=== PATIENT | female | born 1965 | race Caucasian/White ===

== ENCOUNTER 2017-04-14 22:35 | Inpatient (IN) | payer OTHER ==
[~2017-04-14] VITALS: Ht 162.6 cm; Wt 101.0 kg
[~2017-04-14 22:35] MED LIST: ALPR0.254 PO; ARIP1TAB5 PO; ASPI81CH43 PO; ATOR20TA50 PO; BUPR100T14 PO; BUPR75TA9 PO; BUSP15TA60 PO; CARI-277 PO; CLOP75TA28 PO; FENT100D2 TD; HYDR25TA4 PO; LAM100T PO; LIS10T PO; PERCOT PO; PRIM50TA29 PO; SERT-160 PO
[2017-04-14] MEDS ORDERED: ALBUTEROL SULF 2.5 MG/0.5ML(0.5%) NEB SOLN NEB ONE (23:00)
[2017-04-14] MEDS ORDERED: IPRATROPIUM BROM 0.5 MG/2.5ML INH SOL NEB ONE (23:00)
[2017-04-14] MEDS ORDERED: methylPREDNISolone SOD SUCC 125 MG/2 ML VL ONE (23:24)
[2017-04-14] MEDS ORDERED: methylPREDNISolone SOD SUCC 125 MG/2 ML VL IV ONE (23:30)
[2017-04-14 23:33] LABS: Basophils # (auto) 0.2 uL; Basophils % (auto) 1.8 % (0.0-2.0); Eosinophils # (auto) 0 uL; Eosinophils % (auto) 0.2 % (0.0-7.0); Hematocrit 42.9 % (36.0-46.0); Hemoglobin 14.4 g/dL (12.2-16.2); Lymphocytes # (auto) 0.5 uL; Lymphocytes % (auto) 5.2 % (10.0-50.0); Mean Corpuscular Hemoglobin 29.8 pg (28.0-32.0); Mean Corpuscular Hgb Conc. 33.5 g/dL (32.0-36.0); Mean Corpuscular Volume 89.1 fL (80.0-100.0); Monocytes # (auto) 0.5 uL; Monocytes % (auto) 5.2 % (0.0-12.0); Neutrophils # (auto) 8.8 uL; Neutrophils % (auto) 87.6 % (37.0-80.0); Platelet Count (auto) 284 10^3/uL (140-450); Red Blood Cells 4.82 10^6/uL (4.0-5.20); Red Cell Distribution Width 14.3 % (11.8-14.3); White Blood Cell 10.1 10^3/uL (4.4-10.8)
[2017-04-14 23:42] LABS: Alanine Aminotransferase 29 U/L (13-56); Albumin 2.8 g/dL (3.4-5.0); Anion Gap 11 (5-15); Aspartate Aminotransferase 15 U/L (15-37); BUN/Creatinine Ratio 23.7; Blood Urea Nitrogen 22 mg/dL (7-18); Calcium 8.9 mg/dL (8.5-10.1); Carbon Dioxide 28 mmol/L (21-32); Chloride 97 mmol/L (98-107); GFR African American 81 mL/min; GFR Non-African American 67 mL/min; Glucose 136 mg/dL (74-106); Magnesium 1.6 mg/dL (1.6-2.6); Potassium 3.3 mmol/L (3.5-5.1); Sodium 136 mmol/L (136-145)
[2017-04-14 23:46] LABS: Alkaline Phosphatase 106 U/L (45-117); Total Protein 6.9 g/dL (6.4-8.2)
[2017-04-15] MEDS ORDERED: ALBUTEROL SULF 2.5 MG/0.5ML(0.5%) NEB SOLN NEB ONE (01:15)
[2017-04-15] MEDS ORDERED: IPRATROPIUM BROM 0.5 MG/2.5ML INH SOL NEB ONE (01:15)
[2017-04-15] MEDS ORDERED: cefTRIAXone 1GM/10ml IVPUSH 10 ML IV ONE (02:00)
[2017-04-15] MEDS ORDERED: VANCOMYCIN 1GM/250ML 250 ML IV ONE (02:00)
[2017-04-15 02:19] LABS: Urine Bacteria FEW /hpf (None Seen); Urine Blood Negative /uL (Negative); Urine Hyaline Cast FEW /lpf (0 - 2); Urine Mucus FEW (None Seen); Urine Specific Gravity 1.034 (1.001-1.035); Urine WBC 11 /hpf (0 - 5)
[2017-04-15 02:20] LABS: Alcohol, Urine < 3.0 mg/dL (0-5); Amphetamine Screen, Urine NEGATIVE (NEGATIVE); Barbiturate Scree,Urine POSITIVE (NEGATIVE); Benzodiazephine Screen, Urine POSITIVE (NEGATIVE); Cannabinoid Screen, Urine NEGATIVE (NEGATIVE); Cocaine Screen, Urine NEGATIVE (NEGATIVE); Opiate Scree,Urine NEGATIVE (NEGATIVE); Phencyclidine Screen, Urine NEGATIVE (NEGATIVE)
[2017-04-15] MEDS ORDERED: FLUT250M2 INH (03:13)
[2017-04-15] MEDS ORDERED: ATO40T PO (03:13)
[2017-04-15] MEDS ORDERED: POTASSIUM CHL 20 Meq TABLET PO ONE ×2 (03:15→14:45)
[2017-04-15] MEDS ORDERED: ONDANSETRON HCL 4 MG/2 ML VIAL IV PRN (03:15)
[2017-04-15] MEDS ORDERED: HYDROcodone-ACET 5/325MG TAB PO PRN (03:15)
[2017-04-15 04:18] LABS: Basophils # (auto) 0 uL; Basophils % (auto) 0.1 % (0.0-2.0); Eosinophils # (auto) 0 uL; Eosinophils % (auto) 0.2 % (0.0-7.0); Hemoglobin 13.8 g/dL (12.2-16.2); Lymphocytes # (auto) 0.7 uL; Lymphocytes % (auto) 6.1 % (10.0-50.0); Mean Corpuscular Hemoglobin 29.1 pg (28.0-32.0); Mean Corpuscular Hgb Conc. 32.8 g/dL (32.0-36.0); Mean Corpuscular Volume 88.7 fL (80.0-100.0); Monocytes # (auto) 0.5 uL; Monocytes % (auto) 4.8 % (0.0-12.0); Neutrophils # (auto) 9.8 uL; Neutrophils % (auto) 88.8 % (37.0-80.0); Platelet Count (auto) 272 10^3/uL (140-450); Red Blood Cells 4.74 10^6/uL (4.0-5.20); Red Cell Distribution Width 14.3 % (11.8-14.3)
[2017-04-15 04:20] VITALS: BP 106/58
[2017-04-15 04:31] LABS: BUN/Creatinine Ratio 23.4; Calcium 8.8 mg/dL (8.5-10.1); Potassium 3.4 mmol/L (3.5-5.1)
[2017-04-15 05:10] LABS: Lactic Acid w/Reflex 2.8 mmol/L (0.4-2.0)
[2017-04-15] MEDS: ALBUTEROL SULF 2.5 MG/0.5ML(0.5%) NEB SOLN NEB SCH ×3 (05:30→18:00)
[2017-04-15] MEDS ORDERED: DOXYCYCLINE HYC 100MG/250ML 250 ML IV SCH (05:45)
[2017-04-15] MEDS ORDERED: IPRATROPIUM BROM 0.5 MG/2.5ML INH SOL NEB SCH (06:00)
[2017-04-15] MEDS ORDERED: cefTRIAXone 1GM/10ml IVPUSH 10 ML IV SCH (09:00)
[2017-04-15 09:27] VITALS: BP 121/83
[2017-04-15] MEDS: SERTRALINE HCL 50 MG TAB PO SCH (10:18)
[2017-04-15] MEDS: ASPirin-EC 81 mg tab PO SCH (10:18)
[2017-04-15] MEDS: busPIRone HCL 10 MG TAB PO SCH ×2 (10:18→23:10)
[2017-04-15] MEDS: IPRATROPIUM BROM 0.5 MG/2.5ML INH SOL NEB SCH ×2 (13:13→18:00)
[2017-04-15] MEDS ORDERED: LEVOFLOXACIN 750MG 150 ML IV ONE (14:45)
[2017-04-15] MEDS ORDERED: ALBUTEROL SULF 2.5 MG/0.5ML(0.5%) NEB SOLN NEB PRN (14:45)
[2017-04-15] MEDS ORDERED: OSELTAMIVIR 75 MG CAP PO ONE (14:45)
[2017-04-15] MEDS ORDERED: CLINDAMYCIN 600MG IV 50 ML IV ONE (14:45)
[2017-04-15] MEDS ORDERED: methylPREDNISolone SOD SUCC 125 MG/2 ML VL IV ONE (16:15)
[2017-04-15 16:58] VITALS: BP 113/62
[2017-04-15] MEDS: methylPREDNISolone SOD SUCC 40 MG/ML VL IV SCH ×2 (18:53→23:11)
[2017-04-15 22:02] VITALS: BP 103/66
[2017-04-15] MEDS: ATORVASTATIN 20 MG TAB PO SCH (23:05)
[2017-04-15] MEDS: buPROPion HCL 75 MG TAB PO SCH (23:07)
[2017-04-15] MEDS: OSELTAMIVIR 75 MG CAP PO SCH (23:07)
[2017-04-15] MEDS: PRIMIDONE 50 MG TAB PO SCH (23:11)
[2017-04-15] MEDS: CARISOPRODOL 350 MG TAB PO SCH (23:11)
[2017-04-15] MEDS: fentaNYL 100MCG/HR 100 MCG/HR PAT TD SCH (23:12)
[2017-04-15] MEDS: CLINDAMYCIN 600MG IV 50 ML IV SCH (23:14)
[2017-04-16] VITALS (7 sets, daily range): BP systolic 95–117; BP diastolic 53–68
[2017-04-16] MEDS: IPRATROPIUM BROM 0.5 MG/2.5ML INH SOL NEB SCH ×4 (00:45→19:54)
[2017-04-16] MEDS: ALBUTEROL SULF 2.5 MG/0.5ML(0.5%) NEB SOLN NEB SCH ×4 (00:45→19:55)
[2017-04-16] MEDS: BUDESONIDE (INHALATION) 0.5 MG/2 ML NEB NEB SCH ×3 (00:45→19:55)
[2017-04-16 05:44] LABS: Basophils # (auto) 0 uL; Basophils % (auto) 0.1 % (0.0-2.0); Eosinophils # (auto) 0.1 uL; Eosinophils % (auto) 0.5 % (0.0-7.0); Hematocrit 40.9 % (36.0-46.0); Hemoglobin 13.3 g/dL (12.2-16.2); Lymphocytes # (auto) 0.9 uL; Lymphocytes % (auto) 6.9 % (10.0-50.0); Mean Corpuscular Hgb Conc. 32.5 g/dL (32.0-36.0); Mean Corpuscular Volume 89.1 fL (80.0-100.0); Monocytes # (auto) 0.4 uL; Monocytes % (auto) 3.3 % (0.0-12.0); Neutrophils # (auto) 11.6 uL; Neutrophils % (auto) 89.2 % (37.0-80.0); Nucleated Red Blood Cells % 0.1 %; Platelet Count (auto) 318 10^3/uL (140-450); Red Blood Cells 4.59 10^6/uL (4.0-5.20); Red Cell Distribution Width 14.6 % (11.8-14.3)
[2017-04-16] MEDS: CARISOPRODOL 350 MG TAB PO SCH ×4 (06:00→23:37)
[2017-04-16] MEDS: CLINDAMYCIN 600MG IV 50 ML IV SCH ×3 (06:00→21:31)
[2017-04-16] MEDS: methylPREDNISolone SOD SUCC 40 MG/ML VL IV SCH ×3 (06:00→17:46)
[2017-04-16] MEDS: CLOPIDOGREL BISULFATE 75 MG TAB PO SCH ×2 (10:00→10:37)
[2017-04-16] MEDS: LEVOFLOXACIN 750MG 150 ML IV SCH (10:33)
[2017-04-16] MEDS: busPIRone HCL 10 MG TAB PO SCH ×2 (10:34→23:37)
[2017-04-16] MEDS: ASPirin-EC 81 mg tab PO SCH (10:34)
[2017-04-16] MEDS: HCTZ 25 MG TAB PO SCH (10:37)
[2017-04-16] MEDS: OSELTAMIVIR 75 MG CAP PO SCH (10:37)
[2017-04-16] MEDS: buPROPion HCL 75 MG TAB PO SCH ×2 (10:38→23:37)
[2017-04-16] MEDS: SERTRALINE HCL 50 MG TAB PO SCH (10:41)
[2017-04-16] MEDS: LISINOPRIL 10 MG TAB PO SCH (10:43)
[2017-04-16] MEDS: PRIMIDONE 50 MG TAB PO SCH ×2 (10:57→23:37)
[2017-04-16] MEDS: OXYCODONE W/ ACETAMINOPHEN 5/325MG TABLET PO PRN ×2 (11:00→17:47)
[2017-04-16] MEDS ORDERED: ALBUTEROL SULF 2.5 MG/0.5ML(0.5%) NEB SOLN NEB PRN (16:30)
[2017-04-16] MEDS ORDERED: ENOXAPARIN SOD 100 MG/1 ML SYRINGE SC ONE (17:00)
[2017-04-16] MEDS ORDERED: IOHEXOL 350 MG/ML 100ML IJ ONE (21:31)
[2017-04-16] MEDS: ATORVASTATIN 20 MG TAB PO SCH (23:37)
[2017-04-17] VITALS (8 sets, daily range): BP systolic 105–127; BP diastolic 61–81
[2017-04-17] MEDS: methylPREDNISolone SOD SUCC 40 MG/ML VL IV SCH ×4 (00:09→18:01)
[2017-04-17] MEDS: ALBUTEROL SULF 2.5 MG/0.5ML(0.5%) NEB SOLN NEB SCH ×4 (00:10→20:04)
[2017-04-17] MEDS: IPRATROPIUM BROM 0.5 MG/2.5ML INH SOL NEB SCH ×4 (00:10→20:04)
[2017-04-17] MEDS: CLINDAMYCIN 600MG IV 50 ML IV SCH ×3 (05:58→22:54)
[2017-04-17] MEDS: CARISOPRODOL 350 MG TAB PO SCH ×4 (05:58→22:52)
[2017-04-17] MEDS: BUDESONIDE (INHALATION) 0.5 MG/2 ML NEB NEB SCH ×2 (06:10→20:04)
[2017-04-17] MEDS: ENOXAPARIN SOD 40 MG/0.4 ML SYRINGE SC SCH (09:56)
[2017-04-17] MEDS: LEVOFLOXACIN 750MG 150 ML IV SCH (09:57)
[2017-04-17] MEDS: buPROPion HCL 75 MG TAB PO SCH ×2 (09:58→22:53)
[2017-04-17] MEDS: HCTZ 25 MG TAB PO SCH (09:59)
[2017-04-17] MEDS: ASPirin-EC 81 mg tab PO SCH (09:59)
[2017-04-17] MEDS: SERTRALINE HCL 50 MG TAB PO SCH (09:59)
[2017-04-17] MEDS: LISINOPRIL 10 MG TAB PO SCH (10:00)
[2017-04-17] MEDS: CLOPIDOGREL BISULFATE 75 MG TAB PO SCH (10:00)
[2017-04-17] MEDS: busPIRone HCL 10 MG TAB PO SCH ×2 (10:54→22:52)
[2017-04-17] MEDS: PRIMIDONE 50 MG TAB PO SCH ×2 (10:54→22:53)
[2017-04-17] MEDS: OXYCODONE W/ ACETAMINOPHEN 5/325MG TABLET PO PRN ×2 (10:58→18:01)
[2017-04-17] MEDS: ATORVASTATIN 20 MG TAB PO SCH (22:53)
[2017-04-18] VITALS (7 sets, daily range): BP systolic 98–153; BP diastolic 61–86
[2017-04-18] MEDS: methylPREDNISolone SOD SUCC 40 MG/ML VL IV SCH ×4 (00:23→17:52)
[2017-04-18] MEDS: IPRATROPIUM BROM 0.5 MG/2.5ML INH SOL NEB SCH ×4 (00:28→19:46)
[2017-04-18] MEDS: ALBUTEROL SULF 2.5 MG/0.5ML(0.5%) NEB SOLN NEB SCH ×4 (00:28→19:46)
[2017-04-18] MEDS: ZOLPIDEM TARTRATE 5 MG TAB PO PRN ×2 (02:56→21:59)
[2017-04-18] MEDS: ACETAMINOPHEN 500 MG TAB PO PRN ×2 (03:42→16:26)
[2017-04-18] MEDS: CLINDAMYCIN 600MG IV 50 ML IV SCH ×3 (06:33→21:58)
[2017-04-18] MEDS: CARISOPRODOL 350 MG TAB PO SCH ×4 (06:33→21:59)
[2017-04-18] MEDS: BUDESONIDE (INHALATION) 0.5 MG/2 ML NEB NEB SCH ×2 (07:01→19:46)
[2017-04-18] MEDS: CLOPIDOGREL BISULFATE 75 MG TAB PO SCH ×2 (10:00→10:45)
[2017-04-18] MEDS: ASPirin-EC 81 mg tab PO SCH (10:44)
[2017-04-18] MEDS: LEVOFLOXACIN 750MG 150 ML IV SCH (10:44)
[2017-04-18] MEDS: busPIRone HCL 10 MG TAB PO SCH ×2 (10:44→21:59)
[2017-04-18] MEDS: PRIMIDONE 50 MG TAB PO SCH ×2 (10:45→21:59)
[2017-04-18] MEDS: HCTZ 25 MG TAB PO SCH (10:45)
[2017-04-18] MEDS: buPROPion HCL 75 MG TAB PO SCH ×2 (10:45→21:59)
[2017-04-18] MEDS: ENOXAPARIN SOD 40 MG/0.4 ML SYRINGE SC SCH (10:46)
[2017-04-18] MEDS: SERTRALINE HCL 50 MG TAB PO SCH (10:46)
[2017-04-18] MEDS: LISINOPRIL 10 MG TAB PO SCH (10:46)
[2017-04-18] MEDS: OXYCODONE W/ ACETAMINOPHEN 5/325MG TABLET PO PRN ×2 (11:00→17:53)
[2017-04-18] MEDS: fentaNYL 100MCG/HR 100 MCG/HR PAT TD SCH (20:38)
[2017-04-18] MEDS: ATORVASTATIN 20 MG TAB PO SCH (21:59)
[2017-04-19] MEDS: methylPREDNISolone SOD SUCC 40 MG/ML VL IV SCH ×4 (00:06→18:10)
[2017-04-19] MEDS: ALBUTEROL SULF 2.5 MG/0.5ML(0.5%) NEB SOLN NEB SCH ×4 (00:16→19:59)
[2017-04-19] MEDS: IPRATROPIUM BROM 0.5 MG/2.5ML INH SOL NEB SCH ×4 (00:16→19:59)
[2017-04-19] MEDS: OXYCODONE W/ ACETAMINOPHEN 5/325MG TABLET PO PRN ×4 (00:44→20:05)
[2017-04-19 05:13] VITALS: BP 151/80
[2017-04-19] MEDS: CARISOPRODOL 350 MG TAB PO SCH ×4 (06:06→21:48)
[2017-04-19] MEDS: CLINDAMYCIN 600MG IV 50 ML IV SCH (06:06)
[2017-04-19 07:14] LABS: Basophils # (auto) 0.1 uL; Basophils % (auto) 0.4 % (0.0-2.0); Eosinophils # (auto) 0.4 uL; Eosinophils % (auto) 2.6 % (0.0-7.0); Hematocrit 41.7 % (36.0-46.0); Hemoglobin 13.7 g/dL (12.2-16.2); Lymphocytes # (auto) 1.7 uL; Lymphocytes % (auto) 10.6 % (10.0-50.0); Mean Corpuscular Hgb Conc. 32.9 g/dL (32.0-36.0); Mean Corpuscular Volume 87.9 fL (80.0-100.0); Monocytes # (auto) 0.1 uL; Monocytes % (auto) 0.5 % (0.0-12.0); Neutrophils % (auto) 85.9 % (37.0-80.0); Platelet Count (auto) 340 10^3/uL (140-450); Red Blood Cells 4.74 10^6/uL (4.0-5.20); Red Cell Distribution Width 14.6 % (11.8-14.3); White Blood Cell 16.3 10^3/uL (4.4-10.8)
[2017-04-19] MEDS: BUDESONIDE (INHALATION) 0.5 MG/2 ML NEB NEB SCH ×2 (07:15→19:59)
[2017-04-19 07:26] LABS: Albumin 2.3 g/dL (3.4-5.0); BUN/Creatinine Ratio 34.4; Calcium 9.2 mg/dL (8.5-10.1); Potassium 4.2 mmol/L (3.5-5.1)
[2017-04-19 07:28] LABS: Bilirubin, Total 0.3 mg/dL (0.2-1.0); Total Protein 6.8 g/dL (6.4-8.2)
[2017-04-19 09:00] VITALS: BP 162/93
[2017-04-19] MEDS: buPROPion HCL 75 MG TAB PO SCH ×2 (09:16→21:48)
[2017-04-19] MEDS: LEVOFLOXACIN 750MG 150 ML IV SCH (09:16)
[2017-04-19] MEDS: PRIMIDONE 50 MG TAB PO SCH ×2 (09:16→21:48)
[2017-04-19] MEDS: busPIRone HCL 10 MG TAB PO SCH ×2 (09:17→21:47)
[2017-04-19] MEDS: ASPirin-EC 81 mg tab PO SCH (09:18)
[2017-04-19] MEDS: CLOPIDOGREL BISULFATE 75 MG TAB PO SCH (10:00)
[2017-04-19] MEDS: HCTZ 25 MG TAB PO SCH (10:57)
[2017-04-19] MEDS: LISINOPRIL 10 MG TAB PO SCH (10:58)
[2017-04-19] MEDS: ENOXAPARIN SOD 40 MG/0.4 ML SYRINGE SC SCH (10:59)
[2017-04-19] MEDS: SERTRALINE HCL 50 MG TAB PO SCH (10:59)
[2017-04-19 13:00] VITALS: BP 146/74
[2017-04-19 16:54] VITALS: BP 162/89
[2017-04-19] MEDS ORDERED: DEXTROSE (50%) 50ML SYRG IV PRN (17:00)
[2017-04-19] MEDS: InsuLIN REG 1unit/0.01ml Soln (100units/ml) SC SCH ×2 (17:00→21:49)
[2017-04-19] MEDS: ACCU-CHEK COMFORT CURVE STRIP VI SCH ×2 (18:10→21:50)
[2017-04-19] MEDS: Boost Glucose Control 8 Ounces PO SCH (18:11)
[2017-04-19 20:00] VITALS: BP 155/93
[2017-04-19] MEDS: ATORVASTATIN 20 MG TAB PO SCH (21:47)
[2017-04-19] MEDS: ZOLPIDEM TARTRATE 5 MG TAB PO PRN (21:50)
[2017-04-19 22:00] VITALS: BP 155/93
[2017-04-20] MEDS: ALBUTEROL SULF 2.5 MG/0.5ML(0.5%) NEB SOLN NEB SCH ×4 (00:21→20:01)
[2017-04-20] MEDS: IPRATROPIUM BROM 0.5 MG/2.5ML INH SOL NEB SCH ×4 (00:21→20:01)
[2017-04-20] MEDS: methylPREDNISolone SOD SUCC 40 MG/ML VL IV SCH ×4 (00:36→20:52)
[2017-04-20 05:00] VITALS: BP 152/84
[2017-04-20] MEDS: CARISOPRODOL 350 MG TAB PO SCH ×4 (05:41→20:53)
[2017-04-20] MEDS: OXYCODONE W/ ACETAMINOPHEN 5/325MG TABLET PO PRN ×3 (05:42→20:53)
[2017-04-20 05:58] LABS: Hematocrit 47.4 % (36.0-46.0); Hemoglobin 15.4 g/dL (12.2-16.2); Mean Corpuscular Hemoglobin 28.6 pg (28.0-32.0); Mean Corpuscular Hgb Conc. 32.5 g/dL (32.0-36.0); Mean Corpuscular Volume 87.7 fL (80.0-100.0); Platelet Count (auto) 367 10^3/uL (140-450); Red Blood Cells 5.41 10^6/uL (4.0-5.20); Red Cell Distribution Width 14.6 % (11.8-14.3); White Blood Cell 19.4 10^3/uL (4.4-10.8)
[2017-04-20 06:02] LABS: Basophils % (manual) 0 (0.0-2.0); Blast Cells 0; Eosinophils % (manual) 0 (0-7); Promyelocytes % 0; Reactive Lymphocytes 0
[2017-04-20 06:06] LABS: Albumin 2.6 g/dL (3.4-5.0); Calcium 9.2 mg/dL (8.5-10.1); Potassium 4.6 mmol/L (3.5-5.1)
[2017-04-20 06:16] LABS: Bilirubin, Total 0.4 mg/dL (0.2-1.0); Total Protein 7.3 g/dL (6.4-8.2)
[2017-04-20] MEDS: BUDESONIDE (INHALATION) 0.5 MG/2 ML NEB NEB SCH ×2 (06:40→20:01)
[2017-04-20 06:46] LABS: Band Neutrophils % (manual) 3; Lymphocytes % (manual) 19 (10.0-50.0); Metamyelocytes % 4; Monocytes % (manual) 5 (0-12); Myelocytes % 1
[2017-04-20] MEDS: InsuLIN REG 1unit/0.01ml Soln (100units/ml) SC SCH ×4 (06:47→21:09)
[2017-04-20] MEDS: ACCU-CHEK COMFORT CURVE STRIP VI SCH ×4 (06:47→20:53)
[2017-04-20] MEDS: Boost Glucose Control 8 Ounces PO SCH ×3 (08:00→18:00)
[2017-04-20 09:24] VITALS: BP 153/78
[2017-04-20] MEDS: CLOPIDOGREL BISULFATE 75 MG TAB PO SCH (10:00)
[2017-04-20] MEDS: LEVOFLOXACIN 750MG 150 ML IV SCH (11:08)
[2017-04-20] MEDS: SERTRALINE HCL 50 MG TAB PO SCH (11:09)
[2017-04-20] MEDS: busPIRone HCL 10 MG TAB PO SCH ×2 (11:09→20:52)
[2017-04-20] MEDS: ASPirin-EC 81 mg tab PO SCH (11:10)
[2017-04-20] MEDS: buPROPion HCL 75 MG TAB PO SCH ×2 (11:10→20:53)
[2017-04-20] MEDS: PRIMIDONE 50 MG TAB PO SCH ×2 (11:10→20:53)
[2017-04-20] MEDS: LISINOPRIL 10 MG TAB PO SCH (11:11)
[2017-04-20] MEDS: ENOXAPARIN SOD 40 MG/0.4 ML SYRINGE SC SCH (11:11)
[2017-04-20] MEDS: HCTZ 25 MG TAB PO SCH (11:11)
[2017-04-20 12:25] VITALS: BP 153/92
[2017-04-20] MEDS: ATORVASTATIN 20 MG TAB PO SCH (20:52)
[2017-04-20 22:00] VITALS: BP 112/68
[2017-04-21] MEDS: ALBUTEROL SULF 2.5 MG/0.5ML(0.5%) NEB SOLN NEB SCH ×4 (00:28→20:31)
[2017-04-21] MEDS: IPRATROPIUM BROM 0.5 MG/2.5ML INH SOL NEB SCH ×4 (00:28→20:31)
[2017-04-21] MEDS: ZOLPIDEM TARTRATE 5 MG TAB PO PRN (02:56)
[2017-04-21 03:00] VITALS: BP 153/92
[2017-04-21 05:00] VITALS: BP 129/76
[2017-04-21 05:38] LABS: Hematocrit 49.2 % (36.0-46.0); Hemoglobin 16.2 g/dL (12.2-16.2); Mean Corpuscular Hemoglobin 28.9 pg (28.0-32.0); Mean Corpuscular Hgb Conc. 32.9 g/dL (32.0-36.0); Mean Corpuscular Volume 87.7 fL (80.0-100.0); Platelet Count (auto) 408 10^3/uL (140-450); Red Cell Distribution Width 14.6 % (11.8-14.3); White Blood Cell 21.4 10^3/uL (4.4-10.8)
[2017-04-21 05:45] LABS: Basophils % (manual) 0 (0.0-2.0); Blast Cells 0; Eosinophils % (manual) 0 (0-7); Metamyelocytes % 0; Myelocytes % 0; Promyelocytes % 0; Reactive Lymphocytes 0
[2017-04-21] MEDS: BUDESONIDE (INHALATION) 0.5 MG/2 ML NEB NEB SCH ×2 (05:53→20:31)
[2017-04-21] MEDS: CARISOPRODOL 350 MG TAB PO SCH ×4 (06:14→22:10)
[2017-04-21] MEDS: ACCU-CHEK COMFORT CURVE STRIP VI SCH ×4 (06:14→22:09)
[2017-04-21] MEDS: InsuLIN REG 1unit/0.01ml Soln (100units/ml) SC SCH ×4 (06:15→22:09)
[2017-04-21] MEDS: Boost Glucose Control 8 Ounces PO SCH ×3 (08:00→18:00)
[2017-04-21 08:29] VITALS: BP 145/67
[2017-04-21] MEDS: methylPREDNISolone SOD SUCC 40 MG/ML VL IV SCH (09:17)
[2017-04-21] MEDS: LEVOFLOXACIN 750MG 150 ML IV SCH (09:17)
[2017-04-21] MEDS: ASPirin-EC 81 mg tab PO SCH (09:18)
[2017-04-21] MEDS: ENOXAPARIN SOD 40 MG/0.4 ML SYRINGE SC SCH (09:18)
[2017-04-21] MEDS: LISINOPRIL 10 MG TAB PO SCH (09:20)
[2017-04-21] MEDS: OXYCODONE W/ ACETAMINOPHEN 5/325MG TABLET PO PRN ×4 (09:20→23:38)
[2017-04-21] MEDS: buPROPion HCL 75 MG TAB PO SCH ×2 (09:21→22:08)
[2017-04-21] MEDS: busPIRone HCL 10 MG TAB PO SCH ×2 (09:21→22:08)
[2017-04-21] MEDS: PRIMIDONE 50 MG TAB PO SCH ×2 (09:21→22:08)
[2017-04-21] MEDS: SERTRALINE HCL 50 MG TAB PO SCH (09:22)
[2017-04-21] MEDS: CLOPIDOGREL BISULFATE 75 MG TAB PO SCH (09:22)
[2017-04-21] MEDS: HCTZ 25 MG TAB PO SCH (09:22)
[2017-04-21 10:36] LABS: Albumin 2.9 g/dL (3.4-5.0); BUN/Creatinine Ratio 32.9; Calcium 9.6 mg/dL (8.5-10.1); Potassium 4.8 mmol/L (3.5-5.1); Total Protein 7.5 g/dL (6.4-8.2)
[2017-04-21 10:57] LABS: Band Neutrophils % (manual) 11; Lymphocytes % (manual) 21 (10.0-50.0); Monocytes % (manual) 2 (0-12)
[2017-04-21] MEDS: ALPRAZolam 0.5 MG TAB PO PRN ×2 (11:16→18:59)
[2017-04-21 12:05] LABS: Hematocrit 51.2 % (36.0-46.0); Hemoglobin 16.1 g/dL (12.2-16.2); Mean Corpuscular Hemoglobin 28.8 pg (28.0-32.0); Mean Corpuscular Hgb Conc. 31.4 g/dL (32.0-36.0); Mean Corpuscular Volume 91.6 fL (80.0-100.0); Platelet Count (auto) 530 10^3/uL (140-450); Red Blood Cells 5.58 10^6/uL (4.0-5.20); Red Cell Distribution Width 15.4 % (11.8-14.3)
[2017-04-21 12:08] LABS: Band Neutrophils % (manual) 0; Basophils % (manual) 0 (0.0-2.0); Blast Cells 0; Eosinophils % (manual) 0 (0-7); Promyelocytes % 0; Reactive Lymphocytes 0
[2017-04-21 12:57] LABS: Bilirubin, Total 0.3 mg/dL (0.2-1.0)
[2017-04-21 13:03] LABS: Lymphocytes % (manual) 11 (10.0-50.0); Metamyelocytes % 7; Monocytes % (manual) 4 (0-12); Myelocytes % 7
[2017-04-21 13:42] VITALS: BP 120/83
[2017-04-21 17:04] VITALS: BP 109/74
[2017-04-21] MEDS: FLUCONAZOLE 200MG/100ML 100 ML IV SCH ×2 (18:53→20:07)
[2017-04-21] MEDS: fentaNYL 100MCG/HR 100 MCG/HR PAT TD SCH (20:13)
[2017-04-21] MEDS: ATORVASTATIN 20 MG TAB PO SCH (22:10)
[2017-04-21 23:00] VITALS: BP 118/64
[2017-04-22] MEDS: IPRATROPIUM BROM 0.5 MG/2.5ML INH SOL NEB SCH ×3 (00:29→13:38)
[2017-04-22] MEDS: ALBUTEROL SULF 2.5 MG/0.5ML(0.5%) NEB SOLN NEB SCH ×3 (00:29→13:38)
[2017-04-22 05:29] VITALS: BP 121/73
[2017-04-22] MEDS: ACCU-CHEK COMFORT CURVE STRIP VI SCH ×2 (05:53→12:22)
[2017-04-22] MEDS: InsuLIN REG 1unit/0.01ml Soln (100units/ml) SC SCH ×2 (05:54→12:21)
[2017-04-22] MEDS: CARISOPRODOL 350 MG TAB PO SCH ×2 (06:04→12:21)
[2017-04-22 06:30] LABS: Basophils # (auto) 0 uL; Eosinophils # (auto) 0.3 uL; Eosinophils % (auto) 1.3 % (0.0-7.0); Hematocrit 51.6 % (36.0-46.0); Hemoglobin 16.9 g/dL (12.2-16.2); Lymphocytes # (auto) 4.7 uL; Mean Corpuscular Hemoglobin 28.9 pg (28.0-32.0); Mean Corpuscular Hgb Conc. 32.8 g/dL (32.0-36.0); Mean Corpuscular Volume 88.2 fL (80.0-100.0); Monocytes # (auto) 0.9 uL; Monocytes % (auto) 4.7 % (0.0-12.0); Neutrophils # (auto) 13.8 uL; Nucleated Red Blood Cells % 0.1 %; Platelet Count (auto) 421 10^3/uL (140-450); Red Blood Cells 5.85 10^6/uL (4.0-5.20); Red Cell Distribution Width 14.7 % (11.8-14.3); White Blood Cell 19.7 10^3/uL (4.4-10.8)
[2017-04-22 06:39] LABS: Albumin 3.1 g/dL (3.4-5.0); BUN/Creatinine Ratio 33.7; Bilirubin, Total 0.6 mg/dL (0.2-1.0); Calcium 9.1 mg/dL (8.5-10.1); Potassium 4.3 mmol/L (3.5-5.1); Total Protein 7.5 g/dL (6.4-8.2)
[2017-04-22] MEDS: BUDESONIDE (INHALATION) 0.5 MG/2 ML NEB NEB SCH (07:19)
[2017-04-22 07:31] VITALS: BP 110/66
[2017-04-22] MEDS: OXYCODONE W/ ACETAMINOPHEN 5/325MG TABLET PO PRN (08:23)
[2017-04-22] MEDS: Boost Glucose Control 8 Ounces PO SCH ×2 (08:25→12:22)
[2017-04-22] MEDS: ALPRAZolam 0.5 MG TAB PO PRN (08:55)
[2017-04-22] MEDS: SERTRALINE HCL 50 MG TAB PO SCH (08:56)
[2017-04-22] MEDS: PRIMIDONE 50 MG TAB PO SCH (08:56)
[2017-04-22] MEDS: buPROPion HCL 75 MG TAB PO SCH (08:57)
[2017-04-22] MEDS: ASPirin-EC 81 mg tab PO SCH (08:57)
[2017-04-22] MEDS: HCTZ 25 MG TAB PO SCH (08:58)
[2017-04-22] MEDS: LISINOPRIL 10 MG TAB PO SCH (08:59)
[2017-04-22] MEDS ORDERED: FLUCONAZOLE 200MG/100ML 100 ML IV SCH (09:00)
[2017-04-22] MEDS: ENOXAPARIN SOD 40 MG/0.4 ML SYRINGE SC SCH (09:01)
[2017-04-22] MEDS: busPIRone HCL 10 MG TAB PO SCH (09:03)
[2017-04-22] MEDS: LEVOFLOXACIN 750MG 150 ML IV SCH (09:06)
[2017-04-22] MEDS: CLOPIDOGREL BISULFATE 75 MG TAB PO SCH (10:00)
[2017-04-22] MEDS ORDERED: predniSONE 20 MG TAB PO SCH (10:00)
[2017-04-22 10:54] LABS: Hepatitis B Surface Antibody Negative
[2017-04-22 11:11] LABS: Hepatitis B Surface Antigen Negative (Negative)
[2017-04-22 11:31] LABS: Hepatitis C Antibody Negative (Negative)
[2017-04-22 11:32] LABS: Hepatitis A Total Antibody Negative
[2017-04-22 11:33] LABS: Hepatitis B Core Total AB Negative
[2017-04-22 13:25] VITALS: BP 128/77
[2017-04-23] MEDS ORDERED: LEVOFLOXACIN 250 MG TAB PO SCH (10:00)
[2017-04-23] MEDS ORDERED: FLUCONAZOLE 100 MG TAB PO SCH (10:00)
== END 2017-04-22 19:37 | disposition home or self-care (01) | DRG 871 ==
LOC: ER 22:38 → TELE 22:39 → TELE-WESTW 04-15 09:15 → DOU IN ICU 04-15 22:39 → TELE-WESTW 04-17 16:53
PROVIDERS: ADMIT Nurse Practitioner Family; ATTEND Internal Medicine
DX: A41.9 Sepsis, unspecified organism (principal); J18.1 Lobar pneumonia, unspecified organism; J96.00 Acute respiratory failure, unspecified whether with hypoxia or hypercapnia; E44.0 Moderate protein-calorie malnutrition; I11.0 Hypertensive heart disease with heart failure; J44.0 Chronic obstructive pulmonary disease with (acute) lower respiratory infection; I50.9 Heart failure, unspecified; E87.1 Hypo-osmolality and hyponatremia; J45.901 Unspecified asthma with (acute) exacerbation; J44.1 Chronic obstructive pulmonary disease with (acute) exacerbation; N39.0 Urinary tract infection, site not specified; E11.65 Type 2 diabetes mellitus with hyperglycemia; E78.5 Hyperlipidemia, unspecified; I25.10 Atherosclerotic heart disease of native coronary artery without angina pectoris; F41.9 Anxiety disorder, unspecified; R79.89 Other specified abnormal findings of blood chemistry; E66.9 Obesity, unspecified; Z68.38 Body mass index [BMI] 38.0-38.9, adult; Z79.51 Long term (current) use of inhaled steroids; Z79.899 Other long term (current) drug therapy; Z82.49 Family history of ischemic heart disease and other diseases of the circulatory system; Z86.711 Personal history of pulmonary embolism; Z90.710 Acquired absence of both cervix and uterus; Z90.89 Acquired absence of other organs; I25.2 Old myocardial infarction; Z79.82 Long term (current) use of aspirin; Z71.3 Dietary counseling and surveillance
CPT/HCPCS: 36415; 36600; 71010; 71045; 71275; 76705; 80048; 80053; 80307; 81001; 82805; 82962; 83036; 83605; 83735; 83880; 84484; 85007; 85025; 85027; 85379; 85652; 86704; 86706; 86708; 86803; 87040; 87070; 87081; 87086; 87205; 87340; 87400; 93005; 93306; 94640; 96365; 96367; 96368; 96375; 97116; 97163; 97530; J1450; J1815; J1956; J3490

== ENCOUNTER 2019-01-22 08:18 | Inpatient (IN) | payer OTHER ==
[~2019-01-22] VITALS: Ht 162.6 cm; Wt 109.1 kg
[~2019-01-22 08:18] MED LIST changes: +ATO40T PO; -ATOR20TA50 PO; +FLUT250M2 INH; -LAM100T PO
[2019-01-22 09:43] LABS: Basophils # (auto) 0.1 uL; Basophils % (auto) 0.6 % (0.0-2.0); Eosinophils # (auto) 0.3 uL; Eosinophils % (auto) 2.4 % (0.0-7.0); Hematocrit 46.1 % (36.0-46.0); Hemoglobin 15.3 g/dL (12.2-16.2); Lymphocytes % (auto) 8.9 % (10.0-50.0); Mean Corpuscular Hemoglobin 29.9 pg (28.0-32.0); Mean Corpuscular Hgb Conc. 33.1 g/dL (32.0-36.0); Mean Corpuscular Volume 90.4 fL (80.0-100.0); Monocytes # (auto) 0.6 uL; Monocytes % (auto) 5.1 % (0.0-12.0); Neutrophils # (auto) 9.8 uL; Nucleated Red Blood Cells % 0.1 %; Platelet Count (auto) 372 10^3/uL (140-450); Red Cell Distribution Width 14.2 % (11.8-14.3); White Blood Cell 11.8 10^3/uL (4.4-10.8)
[2019-01-22 09:59] LABS: Albumin 3.5 g/dL (3.4-5.0); Anion Gap 7 (5-15); Blood Urea Nitrogen 20 mg/dL (7-18); Calcium 9.4 mg/dL (8.5-10.1); Carbon Dioxide 34 mmol/L (21-32); Chloride 96 mmol/L (98-107); Glucose 136 mg/dL (74-106); Potassium 3.5 mmol/L (3.5-5.1); Sodium 137 mmol/L (136-145)
[2019-01-22 10:02] LABS: Alanine Aminotransferase 36 U/L (13-56); Aspartate Aminotransferase 22 U/L (15-37); GFR African American 83 mL/min; GFR Non-African American 68 mL/min
[2019-01-22 10:07] LABS: Alkaline Phosphatase 110 U/L (45-117); Bilirubin, Total 0.4 mg/dL (0.2-1.0); INR < 0.93 (0.9-1.15); Partial Thromboplastin Time 25.3 sec (23.64-32.05); Total Protein 7.6 g/dL (6.4-8.2)
[2019-01-22] MEDS ORDERED: ALBUTEROL SULF 2.5 MG/0.5ML(0.5%) NEB SOLN NEB ONE (12:30)
[2019-01-22] MEDS ORDERED: IPRATROPIUM BROM 0.5 MG/2.5ML INH SOL NEB ONE (12:30)
[2019-01-22] MEDS ORDERED: methylPREDNISolone SOD SUCC 125 MG/2 ML VL IV ONE (12:30)
[2019-01-22 14:47] LABS: Urine Bacteria NONE SEEN /hpf (None Seen); Urine Blood Negative /uL (Negative); Urine Hyaline Cast FEW /lpf (0 - 2); Urine Specific Gravity 1.014 (1.001-1.035); Urine WBC 3 /hpf (0 - 5)
[2019-01-22] MEDS: SODIUM CHLORIDE 0.9% 1,000 ML IV SCH (15:07)
[2019-01-22] MEDS ORDERED: NITROGLYCERIN 0.4 MG SL TAB SL PRN (15:15)
[2019-01-22] MEDS ORDERED: ALBUTEROL SULF 2.5 MG/0.5ML(0.5%) NEB SOLN NEB PRN (15:15)
[2019-01-22] MEDS ORDERED: fentaNYL 100MCG/HR 100 MCG/HR PAT TD SCH (15:15)
[2019-01-22] MEDS ORDERED: PROMETHAZINE HCL 25 MG/ML 1ML IV PRN (15:15)
[2019-01-22] MEDS ORDERED: MORPHINE SULF INJ 2 MG/ML SYRINGE 1ML IV PRN (15:15)
[2019-01-22] MEDS ORDERED: ACETAMINOPHEN 500 MG TAB PO PRN (15:15)
[2019-01-22] MEDS ORDERED: DEXTROSE (50%) 50ML SYRG IV PRN (15:15)
[2019-01-22] MEDS ORDERED: MORPHINE SULFATE 4 MG/ML SYR/VIAL IV PRN (15:15)
[2019-01-22] MEDS ORDERED: LACTULOSE 20Gm/30ML SOLN PO PRN (15:15)
[2019-01-22] MEDS ORDERED: fentaNYL 25MCG/HR 25 MCG/HR PAT TD SCH (15:45)
[2019-01-22] MEDS: ENOXAPARIN SOD 40 MG/0.4 ML SYRINGE SC SCH (16:06)
[2019-01-22] MEDS: DOXYCYCLINE 100MG/250ML 250 ML IV SCH (16:06)
[2019-01-22 17:02] VITALS: BP 136/92
[2019-01-22] MEDS: CARISOPRODOL 350 MG TAB PO SCH ×2 (17:43→22:00)
[2019-01-22] MEDS: methylPREDNISolone SOD SUCC 40 MG/ML VL IV SCH ×2 (17:43→23:37)
[2019-01-22] MEDS: ACCU-CHEK COMFORT CURVE STRIP VI SCH (17:44)
[2019-01-22] MEDS: IPRATROPIUM BROM 0.5 MG/2.5ML INH SOL NEB SCH (19:26)
[2019-01-22] MEDS: ALBUTEROL SULF 2.5 MG/0.5ML(0.5%) NEB SOLN NEB SCH (19:26)
[2019-01-22 21:26] VITALS: BP 136/92
[2019-01-22] MEDS: PRIMIDONE 50 MG TAB PO SCH (21:53)
[2019-01-22] MEDS: MORPHINE SULF 15mg ER tab PO SCH (21:53)
[2019-01-22] MEDS: Fluticasone-Salmeterol (Advair Diskus 250/50) IN SCH (21:56)
[2019-01-22] MEDS: TEMAZEPAM 15 MG CAP PO PRN (23:37)
[2019-01-22 23:41] VITALS: BP 84/92
[2019-01-23] MEDS: ACCU-CHEK COMFORT CURVE STRIP VI SCH ×6 (00:09→22:00)
[2019-01-23] MEDS: ALBUTEROL SULF 2.5 MG/0.5ML(0.5%) NEB SOLN NEB SCH ×4 (01:01→18:35)
[2019-01-23] MEDS: IPRATROPIUM BROM 0.5 MG/2.5ML INH SOL NEB SCH ×4 (01:01→18:35)
[2019-01-23] MEDS: DOXYCYCLINE 100MG/250ML 250 ML IV SCH ×2 (03:24→15:01)
[2019-01-23 05:25] VITALS: BP 130/76
[2019-01-23] MEDS: CARISOPRODOL 350 MG TAB PO SCH ×4 (05:38→21:01)
[2019-01-23] MEDS: methylPREDNISolone SOD SUCC 40 MG/ML VL IV SCH ×3 (05:38→21:00)
[2019-01-23] MEDS: SODIUM CHLORIDE 0.9% 1,000 ML IV SCH ×2 (05:38→14:45)
[2019-01-23 09:00] VITALS: BP 130/76
[2019-01-23] MEDS: CLOPIDOGREL BISULFATE 75 MG TAB PO SCH (09:48)
[2019-01-23] MEDS: MORPHINE SULF 15mg ER tab PO SCH ×2 (09:48→21:46)
[2019-01-23] MEDS: ENOXAPARIN SOD 40 MG/0.4 ML SYRINGE SC SCH (09:48)
[2019-01-23] MEDS: ASPirin 81 mg TAB PO SCH (09:49)
[2019-01-23] MEDS: LISINOPRIL 10 MG TAB PO SCH (09:49)
[2019-01-23] MEDS: PRIMIDONE 50 MG TAB PO SCH ×2 (09:50→20:44)
[2019-01-23] MEDS ORDERED: ALPRAZolam 0.25 MG TAB PO PRN (10:00)
[2019-01-23] MEDS ORDERED: ALPRAZolam 0.25 MG TAB PO SCH (10:00)
[2019-01-23] MEDS ORDERED: SERTRALINE HCL 50 MG TAB PO SCH (10:00)
[2019-01-23] MEDS: buPROPion HCL 100 MG TAB PO SCH ×3 (10:00→21:00)
[2019-01-23] MEDS: Fluticasone-Salmeterol (Advair Diskus 250/50) IN SCH (10:00)
[2019-01-23] MEDS: ATORVASTATIN 20 MG TAB PO SCH ×2 (10:02→21:01)
[2019-01-23 13:06] VITALS: BP 99/52
[2019-01-23] MEDS ORDERED: DEXTROSE (50%) 50ML SYRG IV PRN (14:45)
[2019-01-23 17:00] VITALS: BP 112/63
[2019-01-23] MEDS: InsuLIN REG 1unit/0.01ml Soln (100units/ml) SC SCH ×2 (17:22→21:47)
[2019-01-23] MEDS: BUDESONIDE (INHALATION) 0.5 MG/2 ML NEB NEB SCH (18:35)
[2019-01-23 20:00] VITALS: BP 130/76
[2019-01-23] MEDS: FAMOTIDINE 20 MG TAB PO SCH (20:45)
[2019-01-23] MEDS: TEMAZEPAM 15 MG CAP PO PRN (21:00)
[2019-01-23 21:50] VITALS: BP 105/59
[2019-01-24] MEDS: ALBUTEROL SULF 2.5 MG/0.5ML(0.5%) NEB SOLN NEB SCH ×3 (00:07→14:38)
[2019-01-24] MEDS: IPRATROPIUM BROM 0.5 MG/2.5ML INH SOL NEB SCH ×3 (00:07→14:38)
[2019-01-24] MEDS: DOXYCYCLINE 100MG/250ML 250 ML IV SCH ×2 (03:17→15:15)
[2019-01-24] MEDS: SODIUM CHLORIDE 0.9% 1,000 ML IV SCH (03:18)
[2019-01-24 05:18] VITALS: BP 141/82
[2019-01-24] MEDS: InsuLIN REG 1unit/0.01ml Soln (100units/ml) SC SCH ×3 (05:39→18:19)
[2019-01-24] MEDS: ACCU-CHEK COMFORT CURVE STRIP VI SCH ×7 (05:48→18:20)
[2019-01-24] MEDS: CARISOPRODOL 350 MG TAB PO SCH ×3 (05:48→18:19)
[2019-01-24] MEDS: buPROPion HCL 100 MG TAB PO SCH ×2 (05:48→12:47)
[2019-01-24 05:52] LABS: Basophils # (auto) 0 uL; Basophils % (auto) 0.1 % (0.0-2.0); Eosinophils # (auto) 0 uL; Eosinophils % (auto) 0.1 % (0.0-7.0); Hematocrit 40.8 % (36.0-46.0); Hemoglobin 13.4 g/dL (12.2-16.2); Lymphocytes # (auto) 2.1 uL; Mean Corpuscular Hemoglobin 29.6 pg (28.0-32.0); Mean Corpuscular Hgb Conc. 32.8 g/dL (32.0-36.0); Mean Corpuscular Volume 90.3 fL (80.0-100.0); Monocytes # (auto) 0.6 uL; Monocytes % (auto) 5.2 % (0.0-12.0); Neutrophils # (auto) 9.4 uL; Neutrophils % (auto) 77.6 % (37.0-80.0); Platelet Count (auto) 367 10^3/uL (140-450); Red Blood Cells 4.52 10^6/uL (4.0-5.20); White Blood Cell 12.1 10^3/uL (4.4-10.8)
[2019-01-24 06:02] LABS: Potassium 3.5 mmol/L (3.5-5.1)
[2019-01-24 06:16] LABS: BUN/Creatinine Ratio 28.6; Magnesium 2.1 mg/dL (1.6-2.6)
[2019-01-24] MEDS: BUDESONIDE (INHALATION) 0.5 MG/2 ML NEB NEB SCH (06:50)
[2019-01-24 09:00] VITALS: BP 121/73
[2019-01-24] MEDS: ASPirin 81 mg TAB PO SCH (09:37)
[2019-01-24] MEDS: methylPREDNISolone SOD SUCC 40 MG/ML VL IV SCH (09:37)
[2019-01-24] MEDS: PRIMIDONE 50 MG TAB PO SCH (09:38)
[2019-01-24] MEDS: CLOPIDOGREL BISULFATE 75 MG TAB PO SCH (09:39)
[2019-01-24] MEDS: MORPHINE SULF 15mg ER tab PO SCH (09:39)
[2019-01-24] MEDS: FAMOTIDINE 20 MG TAB PO SCH (09:40)
[2019-01-24] MEDS: LISINOPRIL 10 MG TAB PO SCH (09:55)
[2019-01-24 10:00] VITALS: BP 130/76
[2019-01-24] MEDS ORDERED: ENOXAPARIN SOD 40 MG/0.4 ML SYRINGE SC SCH (10:00)
[2019-01-24 13:00] VITALS: BP 135/77
[2019-01-24] MEDS ORDERED: DOXY-216 PO (13:28)
[2019-01-24] MEDS ORDERED: MORPHINE SULFATE 4 MG/ML SYR/VIAL IV PRN (13:30)
[2019-01-24 17:00] VITALS: BP 136/79
[2019-01-24 17:06] VITALS: BP 136/79
[2019-01-25] MEDS ORDERED: methylPREDNISolone SOD SUCC 40 MG/ML VL IV SCH (10:00)
== END 2019-01-24 19:25 | disposition home or self-care (01) | DRG 189 ==
LOC: ER 08:18 → TELE 08:19 → TELE-WESTW 16:38
PROVIDERS: ADMIT Internal Medicine; ATTEND Internal Medicine
DX: J96.00 Acute respiratory failure, unspecified whether with hypoxia or hypercapnia (principal); J44.1 Chronic obstructive pulmonary disease with (acute) exacerbation; J45.901 Unspecified asthma with (acute) exacerbation; Z68.41 Body mass index [BMI] 40.0-44.9, adult; F11.20 Opioid dependence, uncomplicated; I10 Essential (primary) hypertension; E66.01 Morbid (severe) obesity due to excess calories; F32.9 Major depressive disorder, single episode, unspecified; E78.5 Hyperlipidemia, unspecified; F41.9 Anxiety disorder, unspecified; D72.829 Elevated white blood cell count, unspecified; R56.9 Unspecified convulsions; E11.42 Type 2 diabetes mellitus with diabetic polyneuropathy; E11.65 Type 2 diabetes mellitus with hyperglycemia; T38.0X5A Adverse effect of glucocorticoids and synthetic analogues, initial encounter; G89.4 Chronic pain syndrome; I25.10 Atherosclerotic heart disease of native coronary artery without angina pectoris; I25.2 Old myocardial infarction; Z86.711 Personal history of pulmonary embolism; Z88.1 Allergy status to other antibiotic agents; Z80.41 Family history of malignant neoplasm of ovary; Z82.49 Family history of ischemic heart disease and other diseases of the circulatory system; Z83.3 Family history of diabetes mellitus; Z90.710 Acquired absence of both cervix and uterus; Z95.5 Presence of coronary angioplasty implant and graft; Y92.89 Other specified places as the place of occurrence of the external cause
CPT/HCPCS: 36415; 36600; 71046; 80048; 80053; 80061; 81001; 82805; 82962; 83036; 83735; 84484; 85025; 85610; 85730; 87804; 93005; 94640; 96361; 96374; 96375; G0378; J1815; J3490

== ENCOUNTER 2019-04-06 17:23 | Emergency (ER) | payer OTHER ==
[~2019-04-06] VITALS: Ht 162.6 cm; Wt 106.6 kg
[~2019-04-06 17:23] MED LIST changes: +DOXY-286 PO
[2019-04-06] MEDS ORDERED: cefTRIAXone 1GM/50ML D5W 50 ML IV ONE (19:15)
[2019-04-06] MEDS ORDERED: MORPHINE SULF INJ 2 MG/ML SYRINGE 1ML IV ONE (20:15)
[2019-04-06] MEDS ORDERED: ONDANSETRON HCL 4 MG/2 ML VIAL IV ONE (20:15)
[2019-04-06 22:32] VITALS: BP 98/53
[2019-04-06] MEDS ORDERED: LIDOCAINE W/ EPINEPHRINE 1% 20ML VIAL ONE (23:12)
[2019-04-06] MEDS ORDERED: MORPHINE SULFATE 4 MG/ML SYR/VIAL ONE (23:14)
== END 2019-04-07 03:14 | disposition home or self-care (01) ==
LOC: ER 17:23
DX: S01.01XA Laceration without foreign body of scalp, initial encounter (principal); W19.XXXA Unspecified fall, initial encounter; Y93.89 Activity, other specified; Y92.89 Other specified places as the place of occurrence of the external cause; Y99.8 Other external cause status; Z88.1 Allergy status to other antibiotic agents
CPT/HCPCS: 12001; 70450; 96365; 96375; 99284; J0696; J2270; J2405